=== PATIENT | male | born 1940 | race Caucasian/White ===

== ENCOUNTER → 2019-02-16 09:00 | Outpatient (BNVA) | payer MEDICARE, SELFPAY | PROVIDERS: Family Provider Internal Medicine; PCP Internal Medicine; Visit Provider Internal Medicine | DX: Z00.00 Encounter for general adult medical examination without abnormal findings (principal); J45.20 Mild intermittent asthma, uncomplicated; I10 Essential (primary) hypertension; F41.9 Anxiety disorder, unspecified; R00.1 Bradycardia, unspecified | CPT/HCPCS: 80053; 84153; 84443; 85007; 85027 ==

== ENCOUNTER 2020-12-24 14:26 | Outpatient (CLI) | payer MEDICARE, SELFPAY ==
--- NOTE | 2020-12-24 14:30 | XR_ITS ---
WS: [id number] Exam: XR chest 2V* [id number] Date/Time of Exam: 12/24/2020 2:42 PM Reason For Exam: Increased BROOKS and wheezing Comparison 03/04/2017. The lungs are hyperinflated and clear. Normal heart size. Marked ectasia of the thoracic aorta. No pl eural effusions. The mediastinum is not widened. Normal regional bony structures. XR/XR chest 2V* [id number] IMPRESSION: 1. Pulmonary hyperinflation which may indicate COPD. No acute cardiopulmonary f inding. 2. 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
== END 2020-12-24 14:27 | disposition home or self-care (01) ==
LOC: RAD 14:29
PROVIDERS: PCP Internal Medicine; Visit Provider Internal Medicine
DX: R06.09 Other forms of dyspnea (principal); R06.2 Wheezing; M40.204 Unspecified kyphosis, thoracic region
CPT/HCPCS: 71046

== ENCOUNTER → 2021-03-06 11:04 | Outpatient (BNVA) | payer MEDICARE, SELFPAY | PROVIDERS: PCP Internal Medicine; Visit Provider Internal Medicine | DX: Z01.812 Encounter for preprocedural laboratory examination (principal); Z20.822 Contact with and (suspected) exposure to COVID-19 | CPT/HCPCS: 87635 ==

== ENCOUNTER → 2021-03-20 09:28 | Outpatient (BNVA) | payer MEDICARE, SELFPAY | PROVIDERS: PCP Internal Medicine; Visit Provider Internal Medicine | DX: Z01.812 Encounter for preprocedural laboratory examination (principal); Z20.822 Contact with and (suspected) exposure to COVID-19 | CPT/HCPCS: 87635 ==

== ENCOUNTER 2021-03-27 09:15 | Outpatient (CLI) | payer MEDICARE, SELFPAY ==
--- NOTE | 2021-03-27 11:24 | PFTS_ITS ---
Date of Study:03/27/21 Date of Dictation: 03/27/2021 MECHANICS: Prebronchodilator forced vital capacity (FVC) is normal. Prebronchodilator forced expiratory volume in one second (FEV1) is moderately reduced. FEV1/FVC is reduced. There is no postbronchodilator study FLOW VOLUME LOOP: Sloping of expiratory limb suggestive of airway obstruction LUNG VOLUMES: TLC is normal. RV is moderately increased suggestive of air trapping DIFFUSING CAPACITY FOR CARBON MONOXIDE: Mildly decreased 68% . INTERPRETATION: The prebronchodilator spirometry reveals moderate obstruction. Lung volumes suggestive of moderate air trapping. There is mild gas transfer defect. Clinical correlation recommended. MTDD
== END 2021-03-27 09:16 | disposition home or self-care (01) ==
PROVIDERS: PCP Internal Medicine; Visit Provider Internal Medicine
DX: J45.20 Mild intermittent asthma, uncomplicated (principal)
CPT/HCPCS: 94010; 94726; 94729